=== PATIENT | female | born 1985 | race Caucasian/White ===

== ENCOUNTER 2022-02-07 14:59 | Outpatient (CLI) | payer BC ==
[2022-02-07 16:02] LABS: Hemoglobin 12.6 g/dL (12.0-15.5); Mean Corpuscular HGB CONC 33.4 g/dL (32.0-36.0); Mean Corpuscular Hemoglobin 29.1 pg (27.0-33.0); Mean Corpuscular Volume 87.1 fl (81.6-98.3); Mean Platelet Volume 10.4 fl (7.4-10.4); Platelet Count 318 10x3/uL (150-450); RBC Distribution Width 13.2 % (11.5-14.5); Red Blood Cell (RBC) Count 4.33 10x6/uL (3.90-5.03); White Blood Cell (WBC) Count 11.5 10x3/uL (3.5-10.5)
[2022-02-07 16:20] LABS: Anion Gap 16 mmol/L (10-20); BUN (Urea Nitrogen) 12 mg/dL (7.0-18.7); Calc. Creatinine Clearance 0 mL/min (70-130); Calcium 9.1 mg/dL (7.8-10.44); Carbon Dioxide 25 mmol/L (22-29); Chloride 102 mmol/L (98-107); Estimated GFR 109; Glucose 85 mg/dL (70-105); Potassium 4.1 mmol/L (3.5-5.1); Sodium 139 mmol/L (136-145)
== END 2022-02-07 15:00 | disposition home or self-care (01) ==
LOC: CSHLAB 14:59
PROVIDERS: ATTEND Podiatrist Foot & Ankle Surgery
DX: Z01.812 Encounter for preprocedural laboratory examination (principal); M72.2 Plantar fascial fibromatosis; M77.31 Calcaneal spur, right foot
CPT/HCPCS: 80048; 85027

== ENCOUNTER 2022-02-09 10:30 | Day surgery (SDC) | payer BC ==
[2022-02-07 13:05] VITALS: BMI 37.8
[~2022-02-09 10:30] MED LIST: Bupivacaine PF 0.5% 30 ML VIAL ONE; Neomycin-Polymyxin 1 ML AMP ONE
[2022-02-09] MEDS ORDERED: Lidocaine 1% MPF 2 ML VIAL ONE (13:15)
[2022-02-09] MEDS ORDERED: CEFAZOLIN 2 GM VIAL ONE (14:10)
[2022-02-09] MEDS ORDERED: Neomycin-Polymyxin 1 ML AMP ONE (14:12)
[2022-02-09] MEDS ORDERED: Lidocaine 1% PF 5 ML VIAL ONE (14:24)
[2022-02-09] MEDS ORDERED: Ketorolac Tromethamine 30 MG/ML VIAL ONE (14:24)
[2022-02-09] MEDS ORDERED: Ondansetron PF 4 MG/2 ML Vial ONE (14:24)
[2022-02-09] MEDS ORDERED: Dexamethasone 4 mg/ml Vial ONE (14:24)
[2022-02-09] MEDS ORDERED: PROPOFOL 20 ML ONE (14:24)
[2022-02-09] MEDS ORDERED: Fentanyl 100 MCG/2 ML VIAL ONE (14:24)
== END 2022-02-09 16:40 | disposition home or self-care (01) ==
LOC: CSHSDC 10:30
PROVIDERS: ATTEND Podiatrist Foot & Ankle Surgery
PROC: 0J8Q0ZZ Division of Right Foot Subcutaneous Tissue and Fascia, Open Approach (ICD-10-PCS; principal; 2022-02-09)
DX: M72.2 Plantar fascial fibromatosis (principal); M77.31 Calcaneal spur, right foot; M77.32 Calcaneal spur, left foot; M76.71 Peroneal tendinitis, right leg; F17.200 Nicotine dependence, unspecified, uncomplicated; Z79.899 Other long term (current) drug therapy
CPT/HCPCS: J0690; J1100; J1885; J2405; J2704; J3010; S0020

== ENCOUNTER 2022-04-14 12:23 | Outpatient (CLI) | payer BC | END 2022-04-14 12:24 | disposition home or self-care (01) | LOC: CSHRAD 12:23 | PROVIDERS: ATTEND Podiatrist Foot & Ankle Surgery | DX: R60.0 Localized edema (principal) ==